=== PATIENT | female | born 1975 | race Caucasian/White ===

== ENCOUNTER 2018-01-29 13:58 | Inpatient (IN) | payer OTHER, SELFPAY ==
[2018-01-29] VITALS (8 sets, daily range): BP systolic 96–121; BP diastolic 59–84; PULSE 62–84; RESP 12–20; TEMP 37–37.2; O2SAT 95–100; BMI 23.6; BMI 25.4
--- NOTE | 2018-01-29 14:47 | EKG12_ITS ---
Test Reason : CP Blood Pressure : / mmHG Vent. Rate : 060 BPM Atrial Rate : 060 BPM P-R Int : 150 ms QRS Dur : 070 ms QT Int : 394 ms P-R-T Axes : 052 012 039 degrees QTc Int : 394 ms Normal sinus rhythm Normal ECG Confirmed by GIULIANA DUEÑAS, DEDE ([id number]), editorial intern KRISTY GALVAN ([id number]) on 02/01/2018 1:23:18 PM Referred By: JORDIN Confirmed By:DEDE GIORDANO MD
[2018-01-29] MEDS: Dicyclomine 10 MG Capsule 20 MG PO (14:55)
[2018-01-29] MEDS: Ondansetron 4 MG/2 ML Vial IV ×3 (15:05→22:17)
[2018-01-29] MEDS: 0.9% Normal Saline 1,000 ML 1000 ML IV (15:06)
[2018-01-29 15:16] LABS: Absolute Lymphocyte Count 2.37 X10^3/ul (0.83-4.51); Absolute Neutrophil Count 5.4 X10^3/uL (2.0-7.7); Basophil# 0.04 X10^3/uL; Basophil% 0.4 % (0-1); Eosinophils% 2.2 % (0-5); Hematocrit 45.6 % (37-47); Hemoglobin 15.2 g/dl (12.0-15.0); Lymphocyte # 2.37 X10^3/ul (4.0); Lymphocyte % 26.2 % (19-41); Mean Corp Hgb Conc 33.3 g/gl (32-36); Mean Corpuscular Hgb 29.9 pg (27.0-32.0); Mean Corpuscular Volume 89.6 fL (81-99); Monocyte# 1.03 X10^3/uL; Monocyte% 11.4 % (0-10); Neutrophil # 5.39 X10^3/uL (2.7-7.7); Neutrophil % 59.5 % (47-70); Platelet Count 248 K/mm3 (150-450); RBC Distribution Width CV 13.8 % (11.6-14.6); RBC Distribution Width SD 45.4 fl (35.1-43.9); Red Blood Count 5.09 M/mm3 (4.2-5.4); White Blood Count 9.1 K/mm3 (4.4-11.0)
[2018-01-29 15:17] LABS: POSITIVE COUNT NO; POSITIVE DIFFERENTIAL NO; POSITIVE MORPHOLOGY NO
--- NOTE | 2018-01-29 15:17 | RAD_ITS ---
STUDY: X-RAY - ACUTE ABDOMINAL SERIES REASON FOR EXAM: Female, 42 years old. Midabdominal pain for a few days, constipation. History of section and oophorectomy. TECHNIQUE: Single view of the chest. Supine, and erect view(s) of the abdomen were obtained. COMPARISON: None. FINDINGS: The lungs are clear and expanded. Normal size heart. Normal mediastinum and bobbi. Normal visualized pulmonary arteries. Normal visualized aortic arch and descending thoracic aorta. Gas and fluid seen and a few borderline distended small bowel loops in the left flank, accompanied by expected volume of gas and stool throughout the colon. There are fluid levels in these small bowel loops on upright study, consistent with mild local ileus or low-grade partial small bowel obstruction. No demonstrated free gas. Metal coil densities project in either side of the pelvis, consistent with prior oophorectomy. This appearance can also be seen with vascular embolization coils. There is a slight S-shaped scoliosis of the thoracolumbar spine. RAD/Acute Abdomen Inc Chest IMPRESSION: 1. Mild local ileus or low-grade partial small bowel obstruction in the left flank. No free gas. 2. No acute cardiopulmonary disease. 3. Metal coil densities consistent with prior bilateral oophorectomy project in the pelvic soft tissues. Alternatively, these could be vascular embolization coils, and further clinical correlation with patient's prior surgical/procedural history needed. Electronically Signed: Bebo Smith MD at 16:08 EDT , Service support ,
[2018-01-29] MEDS: Ketorolac 15 MG/ML Vial IV (15:30)
[2018-01-29 15:35] LABS: ALB/GLOB Ratio 1.1 RATIO (0.9-2.4); AST(SGOT) 22 U/L (15-37); Alanine Aminotransfer ALT/SGPT 35 U/L (13-56); Albumin, Serum 4.1 g/dL (3.2-5.0); Alkaline Phosphatase 67 U/L (45-117); Anion Gap 6 (5-15); BUN 12 mg/dL (7-18); BUN/Creat Ratio 12.8 RATIO (10-20); Calcium,Total 8.9 mg/dL (8.5-10.1); Chloride 103 mmol/L (98-107); Creatinine, Serum 0.94 mg/dL (0.55-1.02); EST Glomerular Filtration Rate 70 mL/min (>60); Est Glom Filt Rate - Afr Amer 84 mL/min (>60); Estimated Creatinine Clearance 58.83 ml/min; Globulin 3.7 g/dL (2.2-4.2); Glucose 92 mg/dL (74-106); Lipase 57 U/L (73-393); Potassium 4.4 mmol/L (3.5-5.1); Protein, Total 7.8 g/dL (6.4-8.2); Sodium Level 139 mmol/L (136-145)
[2018-01-29 15:53] LABS: Lactic Acid 1.6 mmol/L (0.4-2.0)
[2018-01-29 16:14] LABS: Bacteria 0 SEEN /hpf (None Seen); Mucous, Urine 0 SEEN /hpf (<or=2+); White Blood Cells 0 SEEN /hpf (0-5)
--- NOTE | 2018-01-29 16:23 | CT_ITS ---
STUDY: CT ABDOMEN AND PELVIS WITH CONTRAST REASON FOR EXAM: Female, 42 years old. Abdominal pain for one week. RADIATION DOSAGE (If Supplied By Facility): CTDIvol = ( 14.83 ) mGy, DLP = ( 622.19 ) mGycm TECHNIQUE: Transaxial images were obtained from the dome of the diaphragm to the symphysis pubis with oral contrast. 100ML ml of Isovue 300 contrast was administered. Sagittal and coronal images were reconstructed. Individualized dose optimization techniques were used for this CT. COMPARISON: Acute abdomen series 1519 hours. FINDINGS: The visualized lung bases are unremarkable. The visualized portions of the heart are within normal limits. Normal liver. The patent portal vein diameter is 11 mm. Normal gallbladder and extrahepatic biliary system. The diameter of the common bile duct which is 6.5 mm. Normal spleen. Normal pancreas. Normal bilateral adrenal glands. 9 mm rounded cortical cyst seen at the lateral upper midpole of the right kidney. Normal left kidney. No hydronephrosis. Normal visualized stomach. Oral contrast has progressed only into the proximal jejunum at the time of scanning. There is ill-defined stranding in the low/distal small bowel mesentery. A mildly distended fluid-filled small bowel loop in the left lower quadrant may correlate to what was a gas-filled bowel loop in that region on the plain film series. A second mildly distended fluid-filled segment of the terminal ileum in the right lower quadrant tapers back to normal caliber 2-3 cm proximal to the ileocecal valve. Much of the stranding in the low mesentery resides close proximity to a suture line along the superior margin of the right fallopian tube/adnexal region. There is a mildly swirled appearance to the mesentery leading to the dilated terminal ileal loop, but no clear signs of a volvulus or closed-loop hernia. Normal colon. There is [id number] volume well formed stool in the rectal vault. The appendix is visualized on series 601 images 46-47 and appears normal. Normal abdominal aorta. Embolization coils are noted in bilateral hypogastric vessels, although it is uncertain if these are thrombosed arterial or venous segments. Normal inferior vena cava. Normal retroperitoneum. Normal urinary bladder. Normal size anteverted uterus, tilted to the left of midline. The right ovary is surgically absent. A 2.0 x 1.85 x 2.2 cm rounded, rim-enhancing structure in the left adnexa is consistent with mature follicle. Normal abdominal wall. Normal osseous structures. CT/Abdomen/Pelvis WITH Contrast IMPRESSION: 1. Patient is status post right oophorectomy, and a suture line is noted along the right adnexa. The anteverted uterus is normal in size. 2.2 cm mature follicle seen in the left ovary. 2. There is ill-defined stranding in the lower/distal small bowel mesentery, and some distortion/whirling of mesentery leading to a dilated terminal ileal loop. A second mildly distended fluid-filled small bowel loop is seen in the left lower quadrant, separate from this ileal loop by several segments of nondistended bowel. The patient's surgery was 15 years ago, so the mesenteric stranding is unlikely to represent postsurgical change. An acute inflammatory, hemorrhagic, or congestive process could be considered. No clear sign of a complete volvulus or closed-loop hernia, but one or more postsurgical adhesions may lend to the distortion described above. The appendix is normal. 3. Embolization coils noted in bilateral hypogastric vessels. 4. 9 mm cortical cyst in the right kidney. No hydronephrosis. N.B. : The above information has been verbally conveyed by Bebo Smith MD to [facility]- In-Patient RN, on 01/29/2018 18:57:50 (ET). Electronically Signed: Bebo Smith MD at 19:05 EDT , Service support ,
--- NOTE | 2018-01-29 16:25 | ED.VISSUMM ---
- ER Visit Summary Date of Service: 01/29/18 Chief Complaint: Abdominal pain History of Present Illness: The patient is a 42 F for 2 hours of severe abdominal pain. Patient was evaluated 1 week ago for the same symptoms had an emergency department in [place]. She had an unremarkable workup including blood work and a CT scan. She has had intermittent low-grade abdominal pain ever since. Today however she developed severe burning abdominal pain diffusely in the abdomen. She vomited once. She denies any diarrhea but states she may be constipated left. Last bowel movement was this morning. No fever, chest pain, shortness of breath, or other complaints. She has been eating a lot as she is on vacation. She is also been drinking more wine than normal. She denies any medical problems. She has been taking Benadryl and Claritin for allergy control. Physical Examination: Vital signs: afebrile, hemodynamically stable, no hypoxia on room air General: well nourished, well developed, nontoxic appearing, appears very tense with all her muscles contracted, shaking her body mildly Skin: warm, dry, no rash, no pallor HEENT: normocephalic and atraumatic; PERRL, EOMI, moist mucous membranes Cardiovascular: regular rate and rhythm without murmurs, no peripheral edema, 2+ pulses all distal extremities Respiratory: No increased work of breathing, lungs are clear to auscultation bilaterally, no rales, rhonchi or wheezing Abdominal: Abdomen is soft, diffusely tender with normoactive bowel sounds, voluntary guarding, patient able to a lot relax her abdominal musculature when asked to, no rebound, no masses MSK: Moves all extremities, no deformities, normal strength Neuro: Awake and alert, oriented ?4. No facial droop, sensation and motor function intact and symmetric Test Results: Abnormal Lab Results 01/29/18 01/29/18 01/29/18 15:05 15:05 15:05 WBC 9.1 RBC 5.09 Hgb 15.2 H Hct 45.6 MCV 89.6 MCH 29.9 MCHC 33.3 RDW 13.8 RDW Differential 45.4 H Plt Count 248 MPV 9.0 Immature Gran % (Auto) 0.300 Neut % (Auto) 59.5 Lymph % (Auto) 26.2 [place] % (Auto) 11.4 H Eos % (Auto) 2.2 Baso % (Auto) 0.4 Absolute Neuts (auto) 5.4 Absolute Lymphs (auto) 2.37 Total Counted Not Reportable Sodium 139 Potassium 4.4 Chloride 103 Carbon Dioxide 30.0 Anion Gap 6 BUN 12 Creatinine 0.94 Estim Creat Clear Calc 58.83 Est GFR (MDRD) Af Amer 84 Est GFR (MDRD) Non-Af 70 BUN/Creatinine Ratio 12.8 Glucose 92 Lactic Acid 1.6 Calcium 8.9 Total Bilirubin 0.30 AST 22 ALT 35 Alkaline Phosphatase 67 Troponin I < 0.015 Total Protein 7.8 Albumin 4.1 Globulin 3.7 Albumin/Globulin Ratio 1.1 Lipase 57 L Emergency Department Course and Treatment: Patient was given a GI cocktail and Bentyl for symptomatic relief. She was also given Zofran. He did not have adequate improvement of her pain and thus was given IV Toradol. Workup was performed due to patient's appearance of severe discomfort. Labs showed no leukocytosis, no electrolyte derangements, no hepatic derangements, normal lipase, normal lactate. EKG and troponin were performed given the diffuse vague abdominal complaint to rule out atypical ACS in a female. EKG showed normal sinus rhythm with no ischemic changes. Troponin negative. Acute abdominal series showed localized ileus versus partial small bowel obstruction. CT was performed to further characterize this finding. 1639 -reevaluated and she is still writhing around on the bed in pain, with her muscles very tense. She was given morphine. Discussed with patient at that we cannot get her pain under control, she will require admission just for intractable pain. Further disposition will be pending the results of her CT scan. 1720 -patient continues to complain of severe pain with no improvement. She was prescribed Dilaudid. This point her pain has been unresponsive to multiple doses of pain medication. Hospitalist was paged for admission. Final disposition pending discussion with hospitalist and the final CT results. Treatment Plan: [] Disposition: [] Impression: intractable abdominal pain, concern for SBO This note was generated with trip[employer]me dictation software. It may contain incorrect words, spelling, and punctuation that were not noted in review of the chart prior to signing ED Disposition - Plan for ED Patient: Chief Complaint: Abd Pain Referrals: Care Physician,No Primary [Primary Care Provider] -
[2018-01-29] MEDS: Morphine 4 MG/ML Syringe IV (16:45)
[2018-01-29 17:09] LABS: Color, Urine Yellow (Yellow); Glucose, Dipstick Normal (Normal); Ketone-Dipstick Negative (Negative); Leukocyte Esterase-Dipstick 25 /ul (Negative); Nitrite-Dipstick Negative (Negative); Occult Blood-Urine Negative /ul (Negative); Protein-Dipstick 30 mg/dl (Negative); Urine Bilirubin Dipstick Negative (Negative); Urine Clarity Clear (Clear); Urine Urobilinogen Normal (Normal)
[2018-01-29 17:15] LABS: Red Blood Cells-Urine 0-5 SEEN /hpf (0-5); Squamous Epithelial Cells - UA 0-5 SEEN /hpf (5-10)
[2018-01-29 17:21] LABS: Internal QC Validated? YES +Cl - CLEAR BKGD; Pregnancy, Urine Negative Negative
[2018-01-29] MEDS: HYDROmorphone 1 MG/ML Syringe IV ×2 (17:31→22:17)
[2018-01-29] MEDS: 0.9% Normal Saline 1,000 ML 999 ML IV (17:33)
--- NOTE | 2018-01-29 17:34 | ED.RN ---
MD AWARE OF BP, SECOND 1000ML NS BOLUS ORDERED TO BE GIVEN ALONG WITH DILAUDID.
--- NOTE | 2018-01-29 18:14 | PCM.HP.STD ---
Problem List (1) Abdominal pain Status: Acute History of Present Illness Date of Admission: 01/29/18 Chief Complaint: ABDOMINAL PAIN The patient is a 42 year old F with no significant past medical history was admitted by the ED on 01/29/2018 with a 1 day history of severe abdominal pain. Pain was cramping, colicky in nature, Generalized with no aggravating or relieving factors. She had similar pain last week in [place] and went to an urgent care center where a CAT scan and x-rays of the abdomen done were negative. Symptoms recurred again today so she came to the ED. She had assisted nausea and vomiting and says she has not passed any gas since this morning. She had a very small bowel movements this morning. She denied any fever or chills, any shortness of breath, any chest pain or palpitations. Patient states that she has been eating a lot since she is on vacation and actually feels like she is much more bloated than usual. She had oophorectomy for ovarian torsion about 17 years ago and had for delivery of triplets 16 years ago. In the ED, vitals were significant for temperature of 98.7 Fahrenheit, blood pressure 88869, pulse rate of 72 respiratory rate of 12. She was saturating at 100% on room air. Abdominal x-rays done showed mild ileus or low-grade partial small bowel obstruction in the left lung with no free gas no acute cardiopulmonary process and metallic coil densities consistent with bilateral prior oophorectomy. CBC and BMP were unremarkable and lipase was only 57. She has been admitted to be managed for possible small bowel obstruction. CT abdomen ordered and report is pending. [] Past Medical History Allergies No Known Allergies Allergy (Verified 01/29/18 14:02) Home Medications: Ambulatory Orders Medication Instructions Recorded Diclofenac Sodium [Diclofenac 1 tab PO BID 01/29/18 Sodium] traMADol [Ultram] 1 tab PO Q6H PRN PRN 01/29/18 Surgical History: - - Oophorectomy. 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 Lives: With Family - Visiting from [place] Smoking Status: Never smoker Tobacco Use: Non-smoker Alcohol: Occasional Drugs: None - *Family History Maternal History Items: - - Borderline diabetes Paternal History Items: - - borderline diabetes in father Review of Systems Constitutional: Denies: Chills, Fever, Weight Change Eyes: Denies: Blurred vision HEENT: Denies: Head Aches, Sinus Congestion, Sinus Drainage Cardiovascular: Denies: Chest Pain, Chest Tightness, Light Headedness, Orthopnea, Palpitations, Syncope Respiratory: Denies: Cough, Shortness of breath at rest, Sputum production Gastrointestinal: Reports: Abdominal Pain, Constipation, Nausea, Vomiting. Denies: Diarrhea Genitourinary: Denies: Dysuria Musculoskeletal: Denies: Joint Pain, Joint Tenderness Skin: Denies: Rash, Wounds Neurological: Denies: Numbness, Tingling, Focal weakness Psychiatric: Denies: Anxiety, Depression, Homicidal Ideations, Suicidal Ideations Hematologic/ Lymphatic: Denies: Easy Bruising, Easy Bleeding VTE Information - Inpt Only VTE Present on Admission: No VTE Mechan Device Prophylaxis: None VTE Pharm Prophylaxis ordered?: Yes Patient Problems: Active and Suspected Problems Abdominal pain (Acute) - Physical Exam General: Alert, Oriented x3, Cooperative, No apparent distress HEENT: Atraumatic, PERRLA, EOMI, Normocephalic Oral: Moist Mucosa Neck: Supple, No JVD, Negative Carotid Bruits Lungs: Clear to auscultation, Normal air movement, No rhonchi, No wheeze, No rales Cardiovascular: Regular rate, Regular Rhythm, Normal S1, Normal S2, No murmurs Abdomen: Soft, - - Mild generalized tenderness. Mildly hyperactive bowel sounds. No organomegaly. Abdomen is soft. Extremities: No edema, Capillary Refill Less than 3 Seconds Skin: No rashes, No breakdown Musculoskeletal: No Tenderness to Palpation of Joints or Extremities Lymphatic: No Cervical, Supraclavicular, or Inguinal Adenopathy Neurological: Cranial nerves II-XII grossly intact, Motor Exam 5/5 strength throughout Psych/Mental Status: Normal Affect, Appropriate, Alert and oriented to time, place, person, mood and affect Vital Signs Temp Pulse Resp BP Pulse Ox 98.7 F 72 12 105/62 100 01/29/18 13:58 01/29/18 18:06 01/29/18 18:06 01/29/18 18:06 01/29/18 18:06 Impressions Acute Abdomen Series 01/29/18 15:17 IMPRESSION: 1. Mild local ileus or low-grade partial small bowel obstruction in the left flank. No free gas. 2. No acute cardiopulmonary disease. 3. Metal coil densities consistent with prior bilateral oophorectomy project in the pelvic soft tissues. Alternatively, these could be vascular embolization coils, and further clinical correlation with patient's prior surgical/procedural history needed. Electronically Signed: Bebo Smith MD at 16:08 EDT , Service support , 01/29/18 15:17 Acute Abdomen Inc Chest [RAD] Stat 01/29/18 16:23 CT Abd [Abdomen/Pelvis WITH Contrast] [CT] Stat Laboratory Results 01/29/18 01/29/18 01/29/18 Range/Units 15:05 15:05 15:05 WBC 9.1 (4.4-11.0) K/mm3 RBC 5.09 (4.2-5.4) M/mm3 Hgb 15.2 H (12.0-15.0) g/dl Hct 45.6 (37-47) % MCV 89.6 (81-99) fL MCH 29.9 (27.0-32.0) pg MCHC 33.3 (32-36) g/gl RDW 13.8 (11.6-14.6) % RDW Differential 45.4 H (35.1-43.9) fl Plt Count 248 (150-450) K/mm3 MPV 9.0 (6.2-12.0) fl Immature Gran % (Auto) 0.300 (0.0-0.9) % Neut % (Auto) 59.5 (47-70) % Lymph % (Auto) 26.2 (19-41) % [place] % (Auto) 11.4 H (0-10) % Eos % (Auto) 2.2 (0-5) % Baso % (Auto) 0.4 (0-1) % Absolute Neuts (auto) 5.4 (2.0-7.7) X10^3/uL Absolute Lymphs (auto) 2.37 (0.83-4.51) X10^3/ul Total Counted Not Reportable Sodium 139 (136-145) mmol/L Potassium 4.4 (3.5-5.1) mmol/L Chloride 103 (98-107) mmol/L Carbon Dioxide 30.0 (21.0-32.0) mmol/L Anion Gap 6 (5-15) BUN 12 (7-18) mg/dL Creatinine 0.94 (0.55-1.02) mg/dL Estim Creat Clear Calc 58.83 ml/min Est GFR (MDRD) Af Amer 84 (>60) mL/min Est GFR (MDRD) Non-Af 70 (>60) mL/min BUN/Creatinine Ratio 12.8 (10-20) RATIO Glucose 92 (74-106) mg/dL Lactic Acid 1.6 (0.4-2.0) mmol/L Calcium 8.9 (8.5-10.1) mg/dL Total Bilirubin 0.30 (0.20-1.00) mg/dL AST 22 (15-37) U/L ALT 35 (13-56) U/L Alkaline Phosphatase 67 (45-117) U/L Troponin I < 0.015 (<0.045) ng/mL Total Protein 7.8 (6.4-8.2) g/dL Albumin 4.1 (3.2-5.0) g/dL Globulin 3.7 (2.2-4.2) g/dL Albumin/Globulin Ratio 1.1 (0.9-2.4) RATIO Lipase 57 L (73-393) U/L Urine Color (Yellow) Urine Clarity (Clear) Urine pH (5.0 - 8.0) Ur Specific [place] (1.002-1.030) Urine Protein (Negative) mg/dl Urine Glucose (UA) (Normal) mg/dl Urine Ketones (Negative) mg/dl Urine Occult Blood (Negative) /ul Urine Nitrite (Negative) Urine Bilirubin (Negative) mg/dL Urine Urobilinogen (Normal) mg/dl Ur Leukocyte Esterase (Negative) /ul Urine RBC (0-5) /hpf Urine WBC (0-5) /hpf Ur Squamous Epith Cells (5-10) /hpf Urine Bacteria (None Seen) /hpf Urine Mucus (<or=2+) /hpf Urine Test Negative 01/29/18 01/29/18 Range/Units 16:05 16:05 WBC (4.4-11.0) K/mm3 RBC (4.2-5.4) M/mm3 Hgb (12.0-15.0) g/dl Hct (37-47) % MCV (81-99) fL MCH (27.0-32.0) pg MCHC (32-36) g/gl RDW (11.6-14.6) % RDW Differential (35.1-43.9) fl Plt Count (150-450) K/mm3 MPV (6.2-12.0) fl Immature Gran % (Auto) (0.0-0.9) % Neut % (Auto) (47-70) % Lymph % (Auto) (19-41) % [place] % (Auto) (0-10) % Eos % (Auto) (0-5) % Baso % (Auto) (0-1) % Absolute Neuts (auto) (2.0-7.7) X10^3/uL Absolute Lymphs (auto) (0.83-4.51) X10^3/ul Total Counted Sodium (136-145) mmol/L Potassium (3.5-5.1) mmol/L Chloride (98-107) mmol/L Carbon Dioxide (21.0-32.0) mmol/L Anion Gap (5-15) BUN (7-18) mg/dL Creatinine (0.55-1.02) mg/dL Estim Creat Clear Calc ml/min Est GFR (MDRD) Af Amer (>60) mL/min Est GFR (MDRD) Non-Af (>60) mL/min BUN/Creatinine Ratio (10-20) RATIO Glucose (74-106) mg/dL Lactic Acid (0.4-2.0) mmol/L Calcium (8.5-10.1) mg/dL Total Bilirubin (0.20-1.00) mg/dL AST (15-37) U/L ALT (13-56) U/L Alkaline Phosphatase (45-117) U/L Troponin I (<0.045) ng/mL Total Protein (6.4-8.2) g/dL Albumin (3.2-5.0) g/dL Globulin (2.2-4.2) g/dL Albumin/Globulin Ratio (0.9-2.4) RATIO Lipase (73-393) U/L Urine Color Yellow (Yellow) Urine Clarity Clear (Clear) Urine pH 7.0 (5.0 - 8.0) Ur Specific [place] 1.010 (1.002-1.030) Urine Protein 30 H (Negative) mg/dl Urine Glucose (UA) Normal (Normal) mg/dl Urine Ketones Negative (Negative) mg/dl Urine Occult Blood Negative (Negative) /ul Urine Nitrite Negative (Negative) Urine Bilirubin Negative (Negative) mg/dL Urine Urobilinogen Normal (Normal) mg/dl Ur Leukocyte Esterase 25 H (Negative) /ul Urine RBC 0-5 SEEN (0-5) /hpf Urine WBC 0 SEEN (0-5) /hpf Ur Squamous Epith Cells 0-5 SEEN (5-10) /hpf Urine Bacteria 0 SEEN (None Seen) /hpf Urine Mucus 0 SEEN (<or=2+) /hpf Urine Test Negative Negative Assessment/Plan All Active Problems Abdominal pain (Acute) 42-year-old female presenting with 1 day history of severe generalized colicky abdominal pain. 1. Small bowel obstruction likely due to adhesions History of oophorectomy and 16-17 years ago. X-ray showed evidence of low-grade small bowel obstruction and intestinal ileus Also constipated and passing no gas since morning according to it. Patient also feels bloated. Lipase only 57 Admit to MedSurg Keep n.p.o. IV fluids normal saline of 125 cc/h IV Zofran for nausea and vomiting Will defer NG tube as patient is totally currently stable. IV morphine every 4 hours as needed for pain CT abdomen: Ill-defined stranding in the lower 4/distal small bowel mesentery and some distortion/swirling of mesentery leading to a dilated terminal ileal loop. Second mildly distended fluid-filled small bowel loop is seen in the left lower quadrant from this ileo-loop by several segments of nondistended bowel. Normal visualized stomach with oral contrast progressing only to the proximal jejunum at time of scanning. Mild to moderate volume of well formed stool in rectal vault. will get surgical consult 2.DVT prophylaxis: lovenox Code status: Full code This note was generated with [employer] software. It may contain incorrect words, spelling, and punctuation that were not noted in checking the note before signing. 2. Code Visit Inpatient E&M: 60090 Init Hosp L2
--- NOTE | 2018-01-29 18:24 | HP.PCM_ITS ---
Problem List (1) Abdominal pain Status: Acute History of Present Illness Date of Admission: 01/29/18 Chief Complaint: ABDOMINAL PAIN The patient is a 42 year old F with no significant past medical history was admitted by the ED on 01/29/2018 with a 1 day history of severe abdominal pain. Pain was cramping, colicky in nature, Generalized with no aggravating or relieving factors. She had similar pain last week in [place] and went to an urgent care center where a CAT scan and x-rays of the abdomen done were negative. Symptoms recurred again today so she came to the ED. She had assisted nausea and vomiting and says she has not passed any gas since this morning. She had a very small bowel movements this morning. She denied any fever or chills, any shortness of breath, any chest pain or palpitations. Patient states that she has been eating a lot since she is on vacation and actually feels like she is much more bloated than usual. She had oophorectomy for ovarian torsion about 17 years ago and had for delivery of triplets 16 years ago. In the ED, vitals were significant for temperature of 98.7 Fahrenheit, blood pressure 56402, pulse rate of 72 respiratory rate of 12. She was saturating at 100% on room air. Abdominal x-rays done showed mild ileus or low-grade partial small bowel obstruction in the left lung with no free gas no acute cardiopulmonary process and metallic coil densities consistent with bilateral prior oophorectomy. CBC and BMP were unremarkable and lipase was only 57. She has been admitted to be managed for possible small bowel obstruction. CT abdomen ordered and report is pending. [] Past Medical History Allergies No Known Allergies Allergy (Verified 01/29/18 14:02) Home Medications: Ambulatory Orders Medication Instructions Recorded Diclofenac Sodium [Diclofenac 1 tab PO BID 01/29/18 Sodium] traMADol [Ultram] 1 tab PO Q6H PRN PRN 01/29/18 Surgical History: - - Oophorectomy. 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 Lives: With Family - Visiting from [place] Smoking Status: Never smoker Tobacco Use: Non-smoker Alcohol: Occasional Drugs: None - *Family History Maternal History Items: - - Borderline diabetes Paternal History Items: - - borderline diabetes in father Review of Systems Constitutional: Denies: Chills, Fever, Weight Change Eyes: Denies: Blurred vision HEENT: Denies: Head Aches, Sinus Congestion, Sinus Drainage Cardiovascular: Denies: Chest Pain, Chest Tightness, Light Headedness, Orthopnea , Palpitations, Syncope Respiratory: Denies: Cough, Shortness of breath at rest, Sputum production Gastrointestinal: Reports: Abdominal Pain, Constipation, Nausea, Vomiting. Denies: Diarrhea Genitourinary: Denies: Dysuria Musculoskeletal: Denies: Joint Pain, Joint Tenderness Skin: Denies: Rash, Wounds Neurological: Denies: Numbness, Tingling, Focal weakness Psychiatric: Denies: Anxiety, Depression, Homicidal Ideations, Suicidal Ideations Hematologic/ Lymphatic: Denies: Easy Bruising, Easy Bleeding VTE Information - Inpt Only VTE Present on Admission: No VTE Mechan Device Prophylaxis: None VTE Pharm Prophylaxis ordered?: Yes Patient Problems: Active and Suspected Problems Abdominal pain (Acute) - Physical Exam General: Alert, Oriented x3, Cooperative, No apparent distress HEENT: Atraumatic, PERRLA, EOMI, Normocephalic Oral: Moist Mucosa Neck: Supple, No JVD, Negative Carotid Bruits Lungs: Clear to auscultation, Normal air movement, No rhonchi, No wheeze, No rales Cardiovascular: Regular rate, Regular Rhythm, Normal S1, Normal S2, No murmurs Abdomen: Soft, - - Mild generalized tenderness. Mildly hyperactive bowel sounds. No organomegaly. Abdomen is soft. Extremities: No edema, Capillary Refill Less than 3 Seconds Skin: No rashes, No breakdown Musculoskeletal: No Tenderness to Palpation of Joints or Extremities Lymphatic: No Cervical, Supraclavicular, or Inguinal Adenopathy Neurological: Cranial nerves II-XII grossly intact, Motor Exam 5/5 strength throughout Psych/Mental Status: Normal Affect, Appropriate, Alert and oriented to time, place, person, mood and affect Vital Signs Temp Pulse Resp BP Pulse Ox 98.7 F 72 12 105/62 100 01/29/18 13:58 01/29/18 18:06 01/29/18 18:06 01/29/18 18:06 01/29/18 18:06 Impressions Acute Abdomen Series 01/29/18 15:17 IMPRESSION: 1. Mild local ileus or low-grade partial small bowel obstruction in the left flank. No free gas. 2. No acute cardiopulmonary disease. 3. Metal coil densities consistent with prior bilateral oophorectomy project in the pelvic soft tissues. Alternatively, these could be vascular embolization coils, and further clinical correlation with patient's prior surgical/procedural history needed. Electronically Signed: Bebo Smith MD at 16:08 EDT , Service support , 01/29/18 15:17 Acute Abdomen Inc Chest [RAD] Stat 01/29/18 16:23 CT Abd [Abdomen/Pelvis WITH Contrast] [CT] Stat Laboratory Results 01/29/18 01/29/18 01/29/18 Range/Units 15:05 15:05 15:05 WBC 9.1 (4.4-11.0) K/mm3 RBC 5.09 (4.2-5.4) M/mm3 Hgb 15.2 H (12.0-15.0) g/dl Hct 45.6 (37-47) % MCV 89.6 (81-99) fL MCH 29.9 (27.0-32.0) pg MCHC 33.3 (32-36) g/gl RDW 13.8 (11.6-14.6) % RDW Differential 45.4 H (35.1-43.9) fl Plt Count 248 (150-450) K/mm3 MPV 9.0 (6.2-12.0) fl Immature Gran % (Auto) 0.300 (0.0-0.9) % Neut % (Auto) 59.5 (47-70) % Lymph % (Auto) 26.2 (19-41) % [place] % (Auto) 11.4 H (0-10) % Eos % (Auto) 2.2 (0-5) % Baso % (Auto) 0.4 (0-1) % Absolute Neuts (auto) 5.4 (2.0-7.7) X10^3/uL Absolute Lymphs (auto) 2.37 (0.83-4.51) X10^3/ul Total Counted Not Reportable Sodium 139 (136-145) mmol/L Potassium 4.4 (3.5-5.1) mmol/L Chloride 103 (98-107) mmol/L Carbon Dioxide 30.0 (21.0-32.0) mmol/L Anion Gap 6 (5-15) BUN 12 (7-18) mg/dL Creatinine 0.94 (0.55-1.02) mg/dL Estim Creat Clear Calc 58.83 ml/min Est GFR (MDRD) Af Amer 84 (>60) mL/min Est GFR (MDRD) Non-Af 70 (>60) mL/min BUN/Creatinine Ratio 12.8 (10-20) RATIO Glucose 92 (74-106) mg/dL Lactic Acid 1.6 (0.4-2.0) mmol/L Calcium 8.9 (8.5-10.1) mg/dL Total Bilirubin 0.30 (0.20-1.00) mg/dL AST 22 (15-37) U/L ALT 35 (13-56) U/L Alkaline Phosphatase 67 (45-117) U/L Troponin I < 0.015 (<0.045) ng/mL Total Protein 7.8 (6.4-8.2) g/dL Albumin 4.1 (3.2-5.0) g/dL Globulin 3.7 (2.2-4.2) g/dL Albumin/Globulin Ratio 1.1 (0.9-2.4) RATIO Lipase 57 L (73-393) U/L Urine Color (Yellow) Urine Clarity (Clear) Urine pH (5.0 - 8.0) Ur Specific [place] (1.002-1.030) Urine Protein (Negative) mg/dl Urine Glucose (UA) (Normal) mg/dl Urine Ketones (Negative) mg/dl Urine Occult Blood (Negative) /ul Urine Nitrite (Negative) Urine Bilirubin (Negative) mg/dL Urine Urobilinogen (Normal) mg/dl Ur Leukocyte Esterase (Negative) /ul Urine RBC (0-5) /hpf Urine WBC (0-5) /hpf Ur Squamous Epith Cells (5-10) /hpf Urine Bacteria (None Seen) /hpf Urine Mucus (<or=2+) /hpf Urine Test Negative 01/29/18 01/29/18 Range/Units 16:05 16:05 WBC (4.4-11.0) K/mm3 RBC (4.2-5.4) M/mm3 Hgb (12.0-15.0) g/dl Hct (37-47) % MCV (81-99) fL MCH (27.0-32.0) pg MCHC (32-36) g/gl RDW (11.6-14.6) % RDW Differential (35.1-43.9) fl Plt Count (150-450) K/mm3 MPV (6.2-12.0) fl Immature Gran % (Auto) (0.0-0.9) % Neut % (Auto) (47-70) % Lymph % (Auto) (19-41) % [place] % (Auto) (0-10) % Eos % (Auto) (0-5) % Baso % (Auto) (0-1) % Absolute Neuts (auto) (2.0-7.7) X10^3/uL Absolute Lymphs (auto) (0.83-4.51) X10^3/ul Total Counted Sodium (136-145) mmol/L Potassium (3.5-5.1) mmol/L Chloride (98-107) mmol/L Carbon Dioxide (21.0-32.0) mmol/L Anion Gap (5-15) BUN (7-18) mg/dL Creatinine (0.55-1.02) mg/dL Estim Creat Clear Calc ml/min Est GFR (MDRD) Af Amer (>60) mL/min Est GFR (MDRD) Non-Af (>60) mL/min BUN/Creatinine Ratio (10-20) RATIO Glucose (74-106) mg/dL Lactic Acid (0.4-2.0) mmol/L Calcium (8.5-10.1) mg/dL Total Bilirubin (0.20-1.00) mg/dL AST (15-37) U/L ALT (13-56) U/L Alkaline Phosphatase (45-117) U/L Troponin I (<0.045) ng/mL Total Protein (6.4-8.2) g/dL Albumin (3.2-5.0) g/dL Globulin (2.2-4.2) g/dL Albumin/Globulin Ratio (0.9-2.4) RATIO Lipase (73-393) U/L Urine Color Yellow (Yellow) Urine Clarity Clear (Clear) Urine pH 7.0 (5.0 - 8.0) Ur Specific [place] 1.010 (1.002-1.030) Urine Protein 30 H (Negative) mg/dl Urine Glucose (UA) Normal (Normal) mg/dl Urine Ketones Negative (Negative) mg/dl Urine Occult Blood Negative (Negative) /ul Urine Nitrite Negative (Negative) Urine Bilirubin Negative (Negative) mg/dL Urine Urobilinogen Normal (Normal) mg/dl Ur Leukocyte Esterase 25 H (Negative) /ul Urine RBC 0-5 SEEN (0-5) /hpf Urine WBC 0 SEEN (0-5) /hpf Ur Squamous Epith Cells 0-5 SEEN (5-10) /hpf Urine Bacteria 0 SEEN (None Seen) /hpf Urine Mucus 0 SEEN (<or=2+) /hpf Urine Test Negative Negative Assessment/Plan All Active Problems Abdominal pain (Acute) 42-year-old female presenting with 1 day history of severe generalized colicky abdominal pain. 1. Small bowel obstruction likely due to adhesions * History of oophorectomy and 16-17 years ago. * X-ray showed evidence of low-grade small bowel obstruction and intestinal ileus * Also constipated and passing no gas since morning according to it. Patient also feels bloated. * Lipase only 57 * Admit to MedSurg * Keep n.p.o. IV fluids normal saline of 125 cc/h * IV Zofran for nausea and vomiting * Will defer NG tube as patient is totally currently stable. * IV morphine every 4 hours as needed for pain * CT abdomen: Ill-defined stranding in the lower 4/distal small bowel mesentery and some distortion/swirling of mesentery leading to a dilated terminal ileal loop. Second mildly distended fluid-filled small bowel loop is seen in the left lower quadrant from this ileo-loop by several segments of nondistended bowel. Normal visualized stomach with oral contrast progressing only to the proximal jejunum at time of scanning. Mild to moderate volume of well formed stool in rectal vault. * will get surgical consult 2.DVT prophylaxis: lovenox Code status: Full code This note was generated with But[employer]ration software. It may contain incorrect words, spelling, and punctuation that were not noted in checking the note before signing. 2. Code Visit Inpatient E&M: 12927 Init Hosp L2
[2018-01-29] MEDS: 0.9% Normal Saline 1,000 ML 125 ML IV (18:58)
[2018-01-29] MEDS: oxyCODONE 5 MG Tablet PO (20:34)
[2018-01-29] MEDS: 0.9% NaCl Peripheral Flush Adult/Peds IV (22:17)
[2018-01-30] MEDS: oxyCODONE 5 MG Tablet PO ×3 (02:33→20:16)
[2018-01-30] MEDS: 0.9% Normal Saline 1,000 ML 125 ML IV ×3 (03:30→18:18)
[2018-01-30 04:05] VITALS: BP 126/73; PULSE 60; RESP 18; TEMP 37.3; O2SAT 99
[2018-01-30] MEDS: HYDROmorphone 1 MG/ML Syringe IV ×5 (05:02→23:00)
--- NOTE | 2018-01-30 07:00 | EKG12_ITS ---
Test Reason : CP Blood Pressure : / mmHG Vent. Rate : 058 BPM Atrial Rate : 058 BPM P-R Int : 140 ms QRS Dur : 072 ms QT Int : 398 ms P-R-T Axes : 051 006 025 degrees QTc Int : 390 ms Sinus bradycardia Low voltage QRS Borderline ECG Confirmed by GIULIANA DUEÑAS, DEDE ([id number]), television news video editor KRISTY GALVAN ([id number]) on 02/11/2018 4:06:54 PM Referred By: ANTOINETTE Confirmed By:DEDE GIORDANO MD
[2018-01-30 07:17] VITALS: BP 122/89; PULSE 64; RESP 18; TEMP 36.9; O2SAT 95
--- NOTE | 2018-01-30 07:30 | NURSING ---
Pt complaining of chest pressure, to mid-sternal. She denies sob, nausea, no diaphoresis noted. Vital signs within normal range. Stat EKG was ordered and show sinus bradley. Pt asked to ambulate in hallway, as she felt the chest pressure may be due to indigestion. Jerica Stahl, incoming RN aware patient is walking the hallway.
--- NOTE | 2018-01-30 08:07 | PCM.PN.HOSP ---
Patient Problems: Active and Suspected Problems Abdominal pain (Acute) Partial small bowel obstruction (Acute) Subjective: Patient was seen and examined. Complains of abdominal discomfort and nausea with vomiting today. Denied passing any gas. Denied any fever or chills or dizziness. Vitals/I&O's: Vital Signs Temp Pulse Resp BP Pulse Ox 98.5 F 64 18 122/89 H 95 01/30/18 07:17 01/30/18 07:17 01/30/18 07:17 01/30/18 07:17 01/30/18 07:17 Oxygen Delivery Method Room Air Weight: 61 kg Body Mass Index (BMI) 25.4 Intake and Output for Last 24 Hours 01/28/18 01/29/18 01/30/18 23:59 23:59 23:59 Intake Total 1418 / 1418 Output Total 400 / 400 Balance 1018 / 1018 General: Alert, Oriented x3, Cooperative HEENT: Atraumatic, PERRLA, EOMI, Normocephalic Oral: Moist Mucosa Neck: Supple Lungs: Clear to auscultation, Normal air movement Cardiovascular: Regular rate, Regular Rhythm, Normal S1, Normal S2, No murmurs Abdomen: Bowel Sounds Present, Soft, Non Tender, Non-Distended, Tender - Mild upper abdominal tenderness Extremities: No edema Skin: No rashes, No breakdown Musculoskeletal: No Tenderness to Palpation of Joints or Extremities Lymphatic: No Cervical, Supraclavicular, or Inguinal Adenopathy Neurological: Cranial nerves II-XII grossly intact Psych/Mental Status: Normal Affect, Appropriate Current Medications Enoxaparin Sodium (Lovenox) 40 mg SC DAILY@1000 YOHANNES Hydromorphone HCl (Dilaudid Inj) 1 mg IV Q4H PRN PRN PRN Reason: SEVERE PAIN (6-10/10) Last Admin: 01/30/18 05:02 Dose: 1 mg Sodium Chloride () 1,000 mls @ 125 mls/hr IV .Q8H YOHANNES Last Admin: 01/30/18 03:30 Dose: 125 mls/hr Magnesium Hydroxide (Milk Of Magnesia) 30 ml PO DAILY PRN PRN PRN Reason: Constipation Ondansetron HCl (Zofran) 4 mg IV Q8H PRN PRN PRN Reason: NAUSEA/VOMITING Last Admin: 01/29/18 22:17 Dose: 4 mg Oxycodone HCl (Oxyir) 5 mg PO Q6H PRN PRN PRN Reason: SEVERE PAIN (6-10/10) Last Admin: 01/30/18 02:33 Dose: 5 mg Sodium Chloride () 5 - 30 ml IV UD PRN PRN Reason: SALINE FLUSH Last Admin: 01/29/18 22:17 Dose: 10 ml Medical Necessity - Tobacco Use Smoking Status: Never smoker Tobacco Use: Non-smoker Assessment/Plan All Active Problems Abdominal pain (Acute) Partial small bowel obstruction (Acute) 42-year-old female with past medical history of abdominal surgeries comes in with complaints of nausea and abdominal pain, has been admitted and is being managed for partial small bowel obstruction. 1. Partial small bowel obstruction, patient still remains in discomfort, general surgery consulted, patient is n.p.o., will follow-up management by general surgery. Continue with as needed Zofran and pain control 2. DVT prophylaxis with Lovenox subcu Code Visit Inpatient E&M: 37468 Subs Hosp L2
--- NOTE | 2018-01-30 09:21 | PCM.CONS.GEN ---
Problem List (1) Abdominal pain Status: Acute (2) Partial small bowel obstruction Status: Acute Reason for Consult Date of Consultation: 01/30/18 Reason for Consultation: Abdominal pain. Nausea. Vomiting. Constipation. History of Present Illness: The patient is a 42 year old F who presents with a 1 day history of moderate amount of abdominal pain, nausea, vomiting. Patient notes constipation since yesterday. She denies flatus since yesterday. She is originally from [place] here visiting her mother. She noted similar symptoms 1 week ago and was seen at an urgent care in [place]. She noted they did a CAT scan and labs which were negative for any findings. Patient noted she felt has though she had a stomach ache for the last week. She mentioned she has been eating more since being on vacation. She noted she may have not been hydrating herself as well throughout her travels. Patient denies previous small bowel obstruction. She notes she had a for triplets 15 years ago. She also had an oophorectomy for ovarian torsion while . She had a tummy tuck and removal of scar tissue approximately 12 years ago. Patient states she had hemorrhaging following delivery and had a stent placed in a vessel within the leg she believes. CT scan of the ab/pel demonstrated IMPRESSION: 1. Patient is status post right oophorectomy, and a suture line is noted along the right adnexa. The anteverted uterus is normal in size. 2.2 cm mature follicle seen in the left ovary. 2. There is ill-defined stranding in the lower/distal small bowel mesentery, and some distortion/whirling of mesentery leading to a dilated terminal ileal loop. A second mildly distended fluid-filled small bowel loop is seen in the left lower quadrant, separate from this ileal loop by several segments of nondistended bowel. The patient's surgery was 15 years ago, so the mesenteric stranding is unlikely to represent postsurgical change. An acute inflammatory, hemorrhagic, or congestive process could be considered. No clear sign of a complete volvulus or closed-loop hernia, but one or more postsurgical adhesions may lend to the distortion described above. The appendix is normal. 3. Embolization coils noted in bilateral hypogastric vessels. 4. 9 mm cortical cyst in the right kidney. No hydronephrosis. Past Medical History Allergies No Known Allergies Allergy (Verified 01/29/18 14:02) Home Medications: Ambulatory Orders Medication Instructions Recorded Diclofenac Sodium [Diclofenac 1 tab PO BID 01/29/18 Sodium] traMADol [Ultram] 1 tab PO Q6H PRN PRN 01/29/18 Surgical History: - - Oophorectomy. 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 Lives: With Family - Visiting from [place] Smoking Status: Never smoker Tobacco Use: Non-smoker Alcohol: Occasional Drugs: None - *Family History Maternal History Items: - - Borderline diabetes Paternal History Items: - - borderline diabetes in father Review of Systems Constitutional: Reports: Anorexia, Weakness HEENT: Denies: Head Aches, Sinus Congestion, Sinus Drainage Cardiovascular: Reports: Chest Pressure Respiratory: Reports: Shortness of Breath Gastrointestinal: Reports: Abdominal Pain, Constipation, Nausea, Vomiting Genitourinary: Denies: Dysuria Musculoskeletal: Denies: Joint Pain, Joint Tenderness Skin: Denies: Rash, Wounds Neurological: Denies: Numbness, Tingling, Focal weakness Psychiatric: Denies: Anxiety, Depression, Homicidal Ideations, Suicidal Ideations Hematologic/ Lymphatic: Reports: Hx of blood transfusion. Denies: Easy Bruising, Easy Bleeding Patient Problems: Active and Suspected Problems Abdominal pain (Acute) Partial small bowel obstruction (Acute) - Physical Exam General: Alert, Oriented x3, Cooperative HEENT: Atraumatic, PERRLA, EOMI, Normocephalic Neck: Supple, No JVD, Negative Carotid Bruits Lungs: Clear to auscultation, Normal air movement Cardiovascular: Regular rate, No murmurs Abdomen: Soft, Hypoactive Bowel Sounds, Distended - slightly, Tender - generalized Extremities: No edema, Capillary Refill Less than 3 Seconds Skin: No rashes, No breakdown Musculoskeletal: No Tenderness to Palpation of Joints or Extremities Neurological: Neuro grossly intact Psych/Mental Status: Normal Affect, Appropriate Vital Signs Temp Pulse Resp BP Pulse Ox 98.5 F 64 18 122/89 H 95 01/30/18 07:17 01/30/18 07:17 01/30/18 07:17 01/30/18 07:17 01/30/18 07:17 Oxygen Delivery Method Room Air Weight: 134 lb 7.712 oz Body Mass Index (BMI) 25.4 Intake and Output for Last 24 Hours 01/28/18 01/29/1801/30/18 23:59 23:59 23:59 Intake Total 1418 / 1418 Output Total 400 / 400 Balance 1018 / 1018 Assessment/Plan All Active Problems Abdominal pain (Acute) Partial small bowel obstruction (Acute) I have been consulted in conjunction with Dr. Sams Impression: Partial small bowel obstruction. Constipation. Abdominal pain. Nausea. Vomiting Plan: Discussed patient with Dr. Sams. Recommend bowel rest, NPO, conservative measures. Will try soap suds enema x [address] scan appears to have moderate amount of stool within the colon. Will not recommend surgical intervention at this time. If patient's WBC elevates or her symptoms worsen, patient may need an exploratory laparoscopy. Patient is aware of the plan and prefers to not proceed with surgery unless absolutely needed. PAtient has had the opportunity to ask and have questions answered. Patient may chew gum or hard candy. Thank you for allowing us to participate in this patient's care. My recommendations will be available via electronic medical records. Code Visit Office Visits / Consults: [id number] IP Consult L3
[2018-01-30] MEDS: Ondansetron 4 MG/2 ML Vial IV ×2 (09:32→20:36)
--- NOTE | 2018-01-30 11:24 | PCM.PN.SRG ---
Patient Problems: Active and Suspected Problems Abdominal pain (Acute) Subjective: Patient was seen in conjunction with Edel de la cruz PA. Patient has been complaining of some moderate amount of abdominal discomfort no real abdominal distention. CAT scan was obtained showing a partial small bowel obstruction but a significant amount of stool located throughout the colon. She vomited up her prep for the CAT scan. She has had no flatus or bowel movements. Objective: Remarkably flat abdomen soft minimal bowel sounds are identified there is no rebound guarding or peritoneal signs identified. - Physical Exam Vital Signs Temp Pulse Resp BP Pulse Ox 98.5 F 64 18 122/89 H 95 01/30/18 07:17 01/30/18 07:17 01/30/18 07:17 01/30/18 07:17 01/30/18 07:17 Oxygen Delivery Method Room Air Weight: 134 lb 7.712 oz Body Mass Index (BMI) 25.4 Intake and Output for Last 24 Hours 01/28/18 01/29/18 01/30/18 23:59 23:59 23:59 Intake Total 1868 / 1868 Output Total 800 / 800 Balance 1068 / 1068 Medical Necessity - Tobacco Use Smoking Status: Never smoker Tobacco Use: Non-smoker Assessment/Plan All Active Problems Abdominal pain (Acute) Assessment will be partial small bowel obstruction with obstipation Plan at this point I think giving her some soapsuds enema would be of benefit to see if we can start to evacuate the colon. I do not think that I have a surgical abdomen that I need to take to surgery as of yet. However if her pain worsens or white count elevates I believe that possibly performing a laparoscopic exploration might be warranted.
--- NOTE | 2018-01-30 11:27 | CASEMGMT ---
JOAN DIAZ Face to Face with patient for initial transition planning/care coordination assessment. JOAN DIAZ introduced self and role at [facility]. Patient lying in bed, alert and oriented. Patient willing to participate in assessment and is able to answer all questions appropriately. Care providers, pharmacy, and demographics verified. See link attached. Patient wishes to discharge home and has concerns regarding how to transport back to [place], where patient lives. JOAN DIAZ advised patient to discuss with hospitalist prior to discharge. Pt states he has no further needs or concerns at this time. CM to follow for discharge planning needs that may arise. Disposition Plan: Patient to discharge home with family support and follow-up plans in place.
[2018-01-30] MEDS: proMETHazine 25 MG/ML Syringe 12.5 MG IV (13:42)
[2018-01-30 13:50] VITALS: BP 124/65; PULSE 73; RESP 18; TEMP 37; O2SAT 96
[2018-01-30 20:22] VITALS: BP 128/76; PULSE 67; RESP 18; TEMP 36.5; O2SAT 97
[2018-01-31] MEDS: oxyCODONE 5 MG Tablet PO (02:20)
[2018-01-31] MEDS: 0.9% Normal Saline 1,000 ML 125 ML IV (02:20)
[2018-01-31 02:22] VITALS: BP 126/76; PULSE 55; RESP 18; TEMP 37.2; O2SAT 97
[2018-01-31 07:33] VITALS: BP 108/68; PULSE 64; RESP 18; TEMP 36.9; O2SAT 98
--- NOTE | 2018-01-31 11:20 | PCM.PN.SRG ---
Patient Problems: Active and Suspected Problems Abdominal pain (Acute) Partial small bowel obstruction (Acute) Subjective: Patient evaluated resting comfortably in bed. She denies nausea, vomiting, fever. Minimal amount of abdominal discomfort. She had one large BM yesterday and notes multiple episodes of diarrhea. - Physical Exam General: Alert, Oriented x3, Cooperative Abdomen: Bowel Sounds Present, Soft, Distended - slightly, Tender - generalized Vital Signs Temp Pulse Resp BP Pulse Ox 98.4 F 64 18 108/68 98 01/31/18 07:33 01/31/18 07:33 01/31/18 07:33 01/31/18 07:33 01/31/18 07:33 Oxygen Delivery Method Room Air Weight: 134 lb 7.712 oz Body Mass Index (BMI) 25.4 Intake and Output for Last 24 Hours 01/29/18 01/30/18 01/31/18 23:59 23:59 23:59 Intake Total 2511 / 2511 2023 Output Total 800 / 800 Balance 1711 / 1711 2023 Medical Necessity - Tobacco Use Smoking Status: Never smoker Tobacco Use: Non-smoker Assessment/Plan All Active Problems Abdominal pain (Acute) Partial small bowel obstruction (Acute) I have been consulted in conjunction with Dr. Sams Impression: Partial small bowel obstruction. Constipation. Abdominal pain. Nausea. Vomiting Symptoms improving No flatus yet Will try sips of clears Continue ambulation and gum chewing We will continue to monitor this patient Hopeful discharge tomorrow. Code Visit Inpatient E&M: 07939 Subs Hosp L1
[2018-01-31] MEDS: 0.9% Normal Saline 1,000 ML 100 ML IV ×2 (11:30→23:18)
[2018-01-31 14:30] VITALS: BP 102/53; PULSE 48; RESP 18; TEMP 37.1; O2SAT 98
--- NOTE | 2018-01-31 15:14 | PN_ITS ---
Patient Problems: Active and Suspected Problems Abdominal pain (Acute) Partial small bowel obstruction (Acute) Subjective: Patient was seen and examined. Abdominal pain is much improved. Has had several episodes of diarrhea. Denies any nausea or vomiting. Still kept n.p.o. No fever or chills or dizziness or palpitation. Been walking a lot from the nurses station Vitals/I&O's: Vital Signs Temp Pulse Resp BP Pulse Ox 98.8 F 48 L 18 102/53 L 98 01/31/18 14:30 01/31/18 14:30 01/31/18 14:30 01/31/18 14:30 01/31/18 14:30 Oxygen Delivery Method Room Air Weight: 61 kg Body Mass Index (BMI) 25.4 Intake and Output for Last 24 Hours 01/29/18 01/30/18 01/31/18 23:59 23:59 23:59 Intake Total 2511 / 2511 2023 Output Total 800 / 800 Balance 1711 / 1711 2023 General: Alert, Oriented x3, Cooperative, No apparent distress HEENT: Atraumatic, PERRLA, EOMI, Normocephalic Oral: Moist Mucosa Neck: Supple, No JVD Lungs: Clear to auscultation, Normal air movement Cardiovascular: Regular rate, Regular Rhythm, Normal S1, Normal S2, No murmurs Abdomen: Soft, Non Tender, Non-Distended, Hypoactive Bowel Sounds, Tender Extremities: No edema Skin: No rashes, No breakdown Musculoskeletal: No Tenderness to Palpation of Joints or Extremities Lymphatic: No Cervical, Supraclavicular, or Inguinal Adenopathy Neurological: Cranial nerves II-XII grossly intact, Motor Exam 5/5 strength throughout Psych/Mental Status: Normal Affect, Appropriate Current Medications Enoxaparin Sodium (Lovenox) 40 mg SC DAILY@1000 YOHANNES Last Admin: 01/31/18 07:35 Dose: Not Given Hydromorphone HCl (Dilaudid Inj) 1 mg IV Q4H PRN PRN PRN Reason: SEVERE PAIN (6-10/10) Last Admin: 01/30/18 23:00 Dose: 1 mg Sodium Chloride () 1,000 mls @ 100 mls/hr IV .Q10H YOHANNES Last Admin: 01/31/18 11:30 Dose: 100 mls/hr Magnesium Hydroxide (Milk Of Magnesia) 30 ml PO DAILY PRN PRN PRN Reason: Constipation Ondansetron HCl (Zofran) 4 mg IV Q8H PRN PRN PRN Reason: NAUSEA/VOMITING Last Admin: 01/30/18 20:36 Dose: 4 mg Oxycodone HCl (Oxyir) 5 mg PO Q6H PRN PRN PRN Reason: SEVERE PAIN (6-10/10) Last Admin: 01/31/18 02:20 Dose: 5 mg Promethazine HCl (Phenergan) 12.5 mg IV Q6H PRN PRN PRN Reason: NAUSEA/VOMITING Last Admin: 01/30/18 13:42 Dose: 12.5 mg Sodium Chloride () 5 - 30 ml IV UD PRN PRN Reason: SALINE FLUSH Last Admin: 01/29/18 22:17 Dose: 10 ml Medical Necessity - Tobacco Use Smoking Status: Never smoker Tobacco Use: Non-smoker Assessment/Plan All Active Problems Abdominal pain (Acute) Partial small bowel obstruction (Acute) 42-year-old female with past medical history of abdominal surgeries comes in with complaints of nausea and abdominal pain, has been admitted and is being managed for partial small bowel obstruction. 1. Partial small bowel obstruction, abdominal pain is slightly improved, has had episodes of diarrhea, was given enemas yesterday, general surgery following , Not surgical abdomen. Will continue conservative management and follow-up on surgical recommendations. Continue on IV fluids, encourage ambulation. 2. DVT prophylaxis with Lovenox subcu Code Visit Inpatient E&M: 36460 Subs Hosp L2
[2018-01-31 20:30] VITALS: BP 109/63; PULSE 55; RESP 16; TEMP 37.1; O2SAT 100
[2018-01-31 21:45] VITALS: PULSE 55; RESP 16
[2018-02-01] MEDS: DiphenhydrAMINE 25 MG Capsule PO (00:16)
[2018-02-01] MEDS: Acetaminophen 500 MG Tablet 1000 MG PO (00:16)
[2018-02-01 02:30] VITALS: BP 105/66; PULSE 45; RESP 16; TEMP 37.1; O2SAT 97
[2018-02-01] MEDS: oxyCODONE 5 MG Tablet PO (03:51)
[2018-02-01 04:00] VITALS: PULSE 50; RESP 16
[2018-02-01 06:20] LABS: Absolute Neutrophil Count 4.9 X10^3/uL (2.0-7.7); Basophil# 0.03 X10^3/uL; Basophil% 0.3 % (0-1); Eosinophil# 0.49 X10^3/uL; Eosinophils% 5.5 % (0-5); Hematocrit 34.3 % (37-47); Hemoglobin 11.3 g/dl (12.0-15.0); Lymphocyte % 27.9 % (19-41); Mean Corp Hgb Conc 32.9 g/gl (32-36); Mean Corpuscular Hgb 30.3 pg (27.0-32.0); Mean Platelet Vol. 9.6 fl (6.2-12.0); Monocyte# 1.08 X10^3/uL; Neutrophil # 4.85 X10^3/uL (2.7-7.7); Neutrophil % 54.1 % (47-70); Platelet Count 174 K/mm3 (150-450); RBC Distribution Width CV 14.2 % (11.6-14.6); RBC Distribution Width SD 46.5 fl (35.1-43.9); Red Blood Count 3.73 M/mm3 (4.2-5.4)
[2018-02-01 06:37] LABS: POSITIVE COUNT NO; POSITIVE DIFFERENTIAL NO; POSITIVE MORPHOLOGY NO
[2018-02-01 06:52] LABS: Anion Gap 6 (5-15); BUN 5 mg/dL (7-18); BUN/Creat Ratio 8.2 RATIO (10-20); Calcium,Total 7.8 mg/dL (8.5-10.1); Chloride 113 mmol/L (98-107); Creatinine, Serum 0.61 mg/dL (0.55-1.02); EST Glomerular Filtration Rate 114 mL/min (>60); Est Glom Filt Rate - Afr Amer 138 mL/min (>60); Estimated Creatinine Clearance 90.66 ml/min; Glucose 87 mg/dL (74-106); Potassium 3.8 mmol/L (3.5-5.1); Sodium Level 143 mmol/L (136-145)
[2018-02-01 08:41] VITALS: BP 102/61; PULSE 47; RESP 16; TEMP 36.9; O2SAT 97
[2018-02-01] MEDS: 0.9% Normal Saline 1,000 ML 100 ML IV (08:58)
--- NOTE | 2018-02-01 11:43 | PCM.DC ---
- Discharge Diagnoses Current Active Problems: Current Active and Chronic Problems Abdominal pain (Acute) Partial small bowel obstruction (Acute) Reason(s) for Visit for Discharge Instructions: Abdominal pain, partial small bowel obstruction You will use the following diet at home:: Regular Your food should be the consistency of: Regular Your liquids should be the consistency of: Regular/Thin Discharge Activity: Return to Normal Activity Additional Instructions: You are advised to continue your current diet and advanced your diet as you can tolerate. Continue to remain active. Continue on a high fiber diet with lots of fluid. Avoid narcotic pain medications if you can. Allergies/Adverse Reactions: Allergies No Known Allergies Allergy (Verified 01/29/18 14:02) Primary Care Physician: Care Physician,No Primary [Primary Care Provider] - Please follow up with your Primary Care Physician in: in 1-2 weeks Test Results: Test results from this visit will be discussed in further detail at your follow-up appointment, if applicable. Proposed Discharge Date: 02/01/18
--- NOTE | 2018-02-01 11:48 | DCINST_ITS ---
- Discharge Diagnoses Current Active Problems: Current Active and Chronic Problems Abdominal pain (Acute) Partial small bowel obstruction (Acute) Reason(s) for Visit for Discharge Instructions: Abdominal pain, partial small bowel obstruction You will use the following diet at home:: Regular Your food should be the consistency of: Regular Your liquids should be the consistency of: Regular/Thin Discharge Activity: Return to Normal Activity Additional Instructions: You are advised to continue your current diet and advanced your diet as you can tolerate. Continue to remain active. Continue on a high fiber diet with lots of fluid. Avoid narcotic pain medications if you can. Allergies/Adverse Reactions: Allergies No Known Allergies Allergy (Verified 01/29/18 14:02) Primary Care Physician: Care Physician,No Primary [Primary Care Provider] - Please follow up with your Primary Care Physician in: in 1-2 weeks Test Results: Test results from this visit will be discussed in further detail at your follow- up appointment, if applicable. Proposed Discharge Date: 02/01/18
--- NOTE | 2018-02-01 11:48 | PCM.DC.SUM ---
Discharge Date and Diagnosis Date of Admission: 01/29/18 Date of Discharge: 02/01/18 - Primary Discharge Diagnosis Active and Suspected Problems Abdominal pain (Acute) Partial small bowel obstruction (Acute) Hospital Course and Treatment Imaging Results: Clinical Impression(s) from Imaging Studies Acute Abdomen Series 01/29/18 15:17 IMPRESSION: 1. Mild local ileus or low-grade partial small bowel obstruction in the left flank. No free gas. 2. No acute cardiopulmonary disease. 3. Metal coil densities consistent with prior bilateral oophorectomy project in the pelvic soft tissues. Alternatively, these could be vascular embolization coils, and further clinical correlation with patient's prior surgical/procedural history needed. Electronically Signed: Bebo Smith MD at 16:08 EDT , Service support , Abdomen/Pelvis CT 01/29/18 16:23 IMPRESSION: 1. Patient is status post right oophorectomy, and a suture line is noted along the right adnexa. The anteverted uterus is normal in size. 2.2 cm mature follicle seen in the left ovary. 2. There is ill-defined stranding in the lower/distal small bowel mesentery, and some distortion/whirling of mesentery leading to a dilated terminal ileal loop. A second mildly distended fluid-filled small bowel loop is seen in the left lower quadrant, separate from this ileal loop by several segments of nondistended bowel. The patient's surgery was 15 years ago, so the mesenteric stranding is unlikely to represent postsurgical change. An acute inflammatory, hemorrhagic, or congestive process could be considered. No clear sign of a complete volvulus or closed-loop hernia, but one or more postsurgical adhesions may lend to the distortion described above. The appendix is normal. 3. Embolization coils noted in bilateral hypogastric vessels. 4. 9 mm cortical cyst in the right kidney. No hydronephrosis. N.B. : The above information has been verbally conveyed by Bebo Smith MD to [facility]- In-Patient RN, on 01/29/2018 18:57:50 (ET). Electronically Signed: Bebo Smith MD at 19:05 EDT , Service support , General surgery - Dr. Sams Operations: None Procedures: None Summary of Care Provided: 42-year-old female with past medical history of abdominal surgeries -previous of section, oophorectomy comes in with complaints of nausea and abdominal pain. Initial abdominal x-ray showed mild local ileus or low-grade partial small bowel obstruction in the left flank. CT scan of the abdomen and pelvis confirmed pressure small bowel obstruction. She was admitted and managed as partial small bowel obstruction. Patient was seen by general surgery, managed conservatively with n.p.o., pain control, IV fluids. She received enemas with some improvement in her bowel movement. She was tried on clear liquid diet and her diet advanced as tolerated. She will continue to improve, ambulated very well several times on the nursing floor. She was discharged to go back home to [place] to follow-up with her primary care doctor. She was to advance her diet to her previous diet as tolerated. A copy of the CD of the CAT scans done here was given to her. Discharge Diet: No Restrictions Discharge Activity: Return to Normal Activity Primary Care Physician: Care Physician,No Primary [Primary Care Provider] - Please follow up with your Primary Care Physician in: in 1-2 weeks Disposition: Home Minutes spent on discharge:: 40 Medical Necessity - Tobacco Use Smoking Status: Never smoker Tobacco Use: Non-smoker Meaningful Use Info Meaningful Use Diagnoses (Choose all that apply): None applicable Code Visit Inpatient E&M: 68418 Disch Hosp
--- NOTE | 2018-02-01 12:25 | NURSING ---
pt had 2 bottles of medication from prev. hospital stay. pt had me destroy them in pharmacy bin. pills were tramadol and an antiinflammatory medication.
== END 2018-02-01 12:16 | disposition home or self-care (01) | DRG 390 ==
LOC: ED 15:46 → MS3 18:10
PROVIDERS: Admitting Provider Student in an Organized Health Care Education/Training Program; Emergency Provider Emergency Medicine; Visit Provider Internal Medicine
DX: K56.51 Intestinal adhesions [bands], with partial obstruction (principal); Z90.721 Acquired absence of ovaries, unilateral
CPT/HCPCS: 36415; 74022; 74177; 80048; 80053; 81001; 81025; 83605; 83690; 84484; 85025; 93005; 97802; 99284; J7030; Q9967; A4216; J2405